=== PATIENT | male | born 1985 | race Hispanic/Latino ===

== ENCOUNTER 2017-09-29 09:37 | Emergency (ER) | payer SELFPAY ==
[~2017-09-29] VITALS: Ht 182.9 cm; Wt 110.0 kg
[2017-09-29] MEDS ORDERED: NAPROSYN500 MG PO (11:08)
[2017-09-29 11:10] VITALS: BP 131/77
== END 2017-09-29 11:18 | disposition home or self-care (01) | DRG 563 ==
LOC: ED 09:37
DX: S83.92XA Sprain of unspecified site of left knee, initial encounter (principal); X58.XXXA Exposure to other specified factors, initial encounter

== ENCOUNTER 2019-05-23 | Emergency (ER) | payer SELFPAY ==
[~2019-05-23] MED LIST: NAPROSYN500 MG PO
[2019-05-23 15:33] LABS: HEMATOCRIT 44.3 % (39.0-50.0); IMMATURE GRANULOCYTES 0.4 % (0.0-5.0); MEAN CELL VOLUME 95.7 fL CALC (80.0-100.0); MEAN CORPUSCULAR HGB 32.4 pG CALC (26.0-32.0); MEAN CORPUSCULAR HGB CONC 33.9 g/L CALC (32.0-36.0); NEUT# 4.56 thou/uL (1.82-7.42); RED BLOOD COUNT 4.63 mill/uL (4.70-6.10); RED CELL DISTRI WIDTH 12.3 % (11.5-15.5)
[2019-05-23 15:48] LABS: ALBUMIN 4.4 g/dL (3.2-5.0); ALKALINE PHOSPHATASE 81 u/l (38-126); ANION GAP 13 (6-22 (CALC)); BILIRUBIN, TOTAL 0.7 mg/dL (0.0-1.4); BUN 10 mg/dL (9-20); BUN/CREATININE RATIO 16 (12-20 (CALC)); CARBON DIOXIDE 27 mmol/l (22-30); CHLORIDE 102 mmol/l (95-108); CREATININE 0.6 mg/dL (0.7-1.3); GFR > 60 ML/MIN (>=60 (CALC)); GFR FOR AFR.AMER. > 60 ML/MIN (>=60 (CALC)); LIPASE 127 u/l (23-300); POTASSIUM 3.7 mmol/l (3.5-5.1); SGOT/AST 214 u/l (17-59); SODIUM 139 mmol/l (137-146); TOTAL PROTEIN 7.7 g/dL (6.3-8.2)
[2019-05-23 18:07] LABS: URINE BILIRUBIN - DIPSTICK NEGATIVE (NEGATIVE); URINE BLOOD DIPSTICK NEGATIVE (NEGATIVE); URINE COLOR YELLOW; URINE GLUCOSE - DIPSTICK NEGATIVE (NEGATIVE); URINE KETONE NEGATIVE (NEGATIVE); URINE LEUK ESTERASE NEGATIVE (NEGATIVE); URINE NITRITE - DIPSTICK NEGATIVE (Negative); URINE PROTEIN - DIPSTICK NEGATIVE (NEG-TRACE); URINE SPECIFIC GRAVITY >=1.030; URINE UROBILINOGEN - DIPSTICK 0.2 E.U./dL (0.2)
[2019-05-23] MEDS ORDERED: MOTRIN400 MG PO (18:11)
== END 2019-05-23 18:47 | disposition home or self-care (01) | DRG 392 ==
PROVIDERS: Family Medicine
DX: R10.12 Left upper quadrant pain (principal)
CPT/HCPCS: Q9967

== ENCOUNTER 2020-01-17 11:03 | Inpatient (IN) | payer OTHER ==
[~2020-01-17] VITALS: Ht 182.9 cm; Wt 97.2 kg
[~2020-01-17 11:03] MED LIST changes: +MOTRIN400 MG PO
[2020-01-17 11:51] LABS: HEMATOCRIT 46.5 % (39.0-50.0); IMMATURE GRANULOCYTES 1.1 % (0.0-5.0); MEAN CELL VOLUME 94.9 fL CALC (80.0-100.0); MEAN CORPUSCULAR HGB 32.7 pG CALC (26.0-32.0); MEAN CORPUSCULAR HGB CONC 34.4 g/dL CAL (32.0-36.0); NEUT# 3.25 thou/uL (1.82-7.42); RED BLOOD COUNT 4.9 mill/uL (4.70-6.10); RED CELL DISTRI WIDTH 12.2 % (11.5-15.5)
[2020-01-17 12:06] LABS: BILIRUBIN, TOTAL 0.8 mg/dL (0.0-1.4); BUN 3 mg/dL (9-20); BUN/CREATININE RATIO 6 (12-20 (CALC)); CHLORIDE 101 mmol/l (95-108); CREATININE 0.5 mg/dL (0.7-1.3); GFR > 60 ML/MIN (>=60 (CALC)); GFR FOR AFR.AMER. > 60 ML/MIN (>=60 (CALC)); POTASSIUM 4.3 mmol/l (3.5-5.1); SGOT/AST 189 u/l (17-59); SODIUM 143 mmol/l (137-146); TOTAL PROTEIN 8.9 g/dL (6.3-8.2)
[2020-01-17 12:08] LABS: INTERNATIONAL NORMALIZED RATIO 1.1 RATIO (0.7-1.3); PROTHROMBIN TIME 10.5 SECONDS (9.0-12.5)
[2020-01-17 12:15] LABS: ALBUMIN 5.3 g/dL (3.2-5.0); ALKALINE PHOSPHATASE 143 u/l (38-126); ANION GAP 29 (6-22 (CALC)); CARBON DIOXIDE 17 mmol/l (22-30)
[2020-01-17 12:43] LABS: ETHYL ALCOHOL 97 mg/dl (0-30)
[2020-01-17 17:01] LABS: ANION GAP 26 (6-22 (CALC)); BUN 3 mg/dL (9-20); BUN/CREATININE RATIO 5 (12-20 (CALC)); CARBON DIOXIDE 17 mmol/l (22-30); CHLORIDE 104 mmol/l (95-108); CREATININE 0.5 mg/dL (0.7-1.3); GFR > 60 ML/MIN (>=60 (CALC)); GFR FOR AFR.AMER. > 60 ML/MIN (>=60 (CALC)); POTASSIUM 3.8 mmol/l (3.5-5.1); SODIUM 143 mmol/l (137-146)
[2020-01-17 20:00] VITALS: BP 132/79
[2020-01-17 21:04] LABS: ANION GAP 26 (6-22 (CALC)); BUN 4 mg/dL (9-20); BUN/CREATININE RATIO 7 (12-20 (CALC)); CARBON DIOXIDE 17 mmol/l (22-30); CHLORIDE 101 mmol/l (95-108); CREATININE 0.6 mg/dL (0.7-1.3); GFR > 60 ML/MIN (>=60 (CALC)); GFR FOR AFR.AMER. > 60 ML/MIN (>=60 (CALC)); SODIUM 140 mmol/l (137-146)
[2020-01-17 22:00] VITALS: BP 119/75
[2020-01-18] VITALS (9 sets, daily range): BP systolic 11–123; BP diastolic 69–87
[2020-01-18 01:17] LABS: ANION GAP 18 (6-22 (CALC)); BUN 5 mg/dL (9-20); BUN/CREATININE RATIO 9 (12-20 (CALC)); CHLORIDE 103 mmol/l (95-108); CREATININE 0.5 mg/dL (0.7-1.3); GFR > 60 ML/MIN (>=60 (CALC)); GFR FOR AFR.AMER. > 60 ML/MIN (>=60 (CALC)); POTASSIUM 3.4 mmol/l (3.5-5.1); SODIUM 139 mmol/l (137-146)
[2020-01-18 01:19] LABS: CARBON DIOXIDE 21 mmol/l (22-30)
[2020-01-18 04:34] LABS: IMMATURE GRANULOCYTES 0.8 % (0.0-5.0); MEAN CELL VOLUME 95.7 fL CALC (80.0-100.0); MEAN CORPUSCULAR HGB 32.4 pG CALC (26.0-32.0); MEAN CORPUSCULAR HGB CONC 33.8 g/dL CAL (32.0-36.0); NEUT# 2.76 thou/uL (1.82-7.42); RED BLOOD COUNT 4.23 mill/uL (4.70-6.10); RED CELL DISTRI WIDTH 12.4 % (11.5-15.5)
[2020-01-18 04:38] LABS: HEMATOCRIT 40.5 % (39.0-50.0); HEMOGLOBIN 13.7 g/dl (14.0-18.0)
[2020-01-18 04:57] LABS: ANION GAP 19 (6-22 (CALC)); BUN 6 mg/dL (9-20); BUN/CREATININE RATIO 12 (12-20 (CALC)); CARBON DIOXIDE 19 mmol/l (22-30); CHLORIDE 103 mmol/l (95-108); CREATININE 0.5 mg/dL (0.7-1.3); GFR > 60 ML/MIN (>=60 (CALC)); GFR FOR AFR.AMER. > 60 ML/MIN (>=60 (CALC)); POTASSIUM 3.1 mmol/l (3.5-5.1); SODIUM 138 mmol/l (137-146)
[2020-01-18 04:59] LABS: ALKALINE PHOSPHATASE 84 u/l (38-126); ANION GAP 17 (6-22 (CALC)); BILIRUBIN, TOTAL 0.7 mg/dL (0.0-1.4); BUN 6 mg/dL (9-20); BUN/CREATININE RATIO 11 (12-20 (CALC)); CALCULATED LDLCHOLESTEROL 221 mg/dL (62-129 (CALC)); CARBON DIOXIDE 21 mmol/l (22-30); CHLORIDE 103 mmol/l (95-108); CHOLESTEROL HDL RATIO 7.4 (<4.4 (CALC)); CREATININE 0.5 mg/dL (0.7-1.3); GFR > 60 ML/MIN (>=60 (CALC)); GFR FOR AFR.AMER. > 60 ML/MIN (>=60 (CALC)); HDL CHOLESTEROL 40 mg/dL (>=40); MAGNESIUM 1.9 mg/dL (1.6-2.3); POTASSIUM 3.1 mmol/l (3.5-5.1); SGOT/AST 114 u/l (17-59); SODIUM 138 mmol/l (137-146); TOTAL CHOLESTEROL 296 mg/dl (0-199); TOTAL TRIGLYCERIDES 175 mg/dl (30-149); VLDL CHOLESTROL 35 mg/dl (5-56 (CALC))
[2020-01-18 05:00] LABS: ALBUMIN 4.2 g/dL (3.2-5.0)
[2020-01-18 09:31] LABS: ANION GAP 21 (6-22 (CALC)); BUN 6 mg/dL (9-20); BUN/CREATININE RATIO 13 (12-20 (CALC)); CARBON DIOXIDE 18 mmol/l (22-30); CHLORIDE 102 mmol/l (95-108); CREATININE 0.5 mg/dL (0.7-1.3); GFR > 60 ML/MIN (>=60 (CALC)); GFR FOR AFR.AMER. > 60 ML/MIN (>=60 (CALC)); POTASSIUM 3.4 mmol/l (3.5-5.1); SODIUM 138 mmol/l (137-146)
[2020-01-18 13:37] LABS: ALBUMIN 4.3 g/dL (3.2-5.0); ALKALINE PHOSPHATASE 88 u/l (38-126); ANION GAP 21 (6-22 (CALC)); BILIRUBIN, TOTAL 0.8 mg/dL (0.0-1.4); BUN 6 mg/dL (9-20); BUN/CREATININE RATIO 10 (12-20 (CALC)); CARBON DIOXIDE 19 mmol/l (22-30); CHLORIDE 100 mmol/l (95-108); CREATININE 0.6 mg/dL (0.7-1.3); GFR > 60 ML/MIN (>=60 (CALC)); GFR FOR AFR.AMER. > 60 ML/MIN (>=60 (CALC)); POTASSIUM 3.7 mmol/l (3.5-5.1); SGOT/AST 174 u/l (17-59); SODIUM 136 mmol/l (137-146); TOTAL PROTEIN 7.3 g/dL (6.3-8.2)
[2020-01-19 04:00] VITALS: BP 124/76
[2020-01-19 05:45] LABS: HEMATOCRIT 41.4 % (39.0-50.0); HEMOGLOBIN 13.9 g/dl (14.0-18.0); MEAN CELL VOLUME 97.4 fL CALC (80.0-100.0); MEAN CORPUSCULAR HGB 32.7 pG CALC (26.0-32.0); MEAN CORPUSCULAR HGB CONC 33.6 g/dL CAL (32.0-36.0); NEUT# 2.47 thou/uL (1.82-7.42); RED BLOOD COUNT 4.25 mill/uL (4.70-6.10); RED CELL DISTRI WIDTH 12.4 % (11.5-15.5)
[2020-01-19 06:07] LABS: ALKALINE PHOSPHATASE 90 u/l (38-126); ANION GAP 22 (6-22 (CALC)); BUN 6 mg/dL (9-20); BUN/CREATININE RATIO 9 (12-20 (CALC)); CARBON DIOXIDE 17 mmol/l (22-30); CHLORIDE 100 mmol/l (95-108); CREATININE 0.6 mg/dL (0.7-1.3); GFR > 60 ML/MIN (>=60 (CALC)); GFR FOR AFR.AMER. > 60 ML/MIN (>=60 (CALC)); SGOT/AST 189 u/l (17-59); SODIUM 135 mmol/l (137-146); TOTAL PROTEIN 6.8 g/dL (6.3-8.2)
[2020-01-19 07:24] VITALS: BP 127/84
[2020-01-19] MEDS ORDERED: METFORMIN500 M2 PO (11:23)
[2020-01-19] MEDS ORDERED: NOVOLIN 70/30 SC (11:27)
== END 2020-01-19 11:34 | disposition home or self-care (01) | DRG 639 ==
LOC: ED 11:03 → ED-I 13:25 → ED 14:15 → ICU 14:16 → MS2 01-18 16:20
PROVIDERS: Emergency Medicine; Nurse Practitioner; ADMIT Internal Medicine; ATTEND Internal Medicine
DX: E11.10 Type 2 diabetes mellitus with ketoacidosis without coma (principal); K06.8 Other specified disorders of gingiva and edentulous alveolar ridge; F10.10 Alcohol abuse, uncomplicated; Y90.4 Blood alcohol level of 80-99 mg/100 ml; Z20.828 Contact with and (suspected) exposure to other viral communicable diseases

== ENCOUNTER 2021-09-09 11:27 | Emergency (ER) | payer MEDICAID ==
[2021-09-09] VITALS (7 sets, daily range): BP systolic 126–147; BP diastolic 82–100
[~2021-09-09] VITALS: Ht 167.6 cm; Wt 79.8 kg
[~2021-09-09 11:27] MED LIST changes: +METFORMIN500 M2 PO; +NOVOLIN 70/30 SC
[2021-09-09 12:25] LABS: IMMATURE GRANULOCYTES 0.4 % (0.0-5.0); MEAN CELL VOLUME 96.1 fL CALC (80.0-100.0); MEAN CORPUSCULAR HGB CONC 34.4 g/dL CAL (32.0-36.0); NEUT# 5.13 thou/uL (1.82-7.42); RED BLOOD COUNT 5.09 mill/uL (4.70-6.10); RED CELL DISTRI WIDTH 11.5 % (11.5-15.5)
[2021-09-09 12:31] LABS: HEMATOCRIT 48.9 % (39.0-50.0); HEMOGLOBIN 16.8 g/dl (14.0-18.0)
[2021-09-09 12:46] LABS: URINE BLOOD DIPSTICK NEGATIVE (NEGATIVE); URINE COLOR YELLOW; URINE GLUCOSE - DIPSTICK >=1000 mg/dL (NEGATIVE); URINE KETONE >=80 mg/dL (NEGATIVE); URINE LEUK ESTERASE NEGATIVE (NEGATIVE); URINE PH 5.5 (4.5-8.0); URINE PROTEIN - DIPSTICK TRACE mg/dL (NEG-TRACE); URINE SPECIFIC GRAVITY 1.015; URINE UROBILINOGEN - DIPSTICK 0.2 E.U./dL (0.2)
[2021-09-09 12:47] LABS: ALKALINE PHOSPHATASE 111 u/l (38-126); ANION GAP 26 (6-22 (CALC)); BUN 12 mg/dL (9-20); BUN/CREATININE RATIO 24 (12-20 (CALC)); CARBON DIOXIDE 20 mmol/l (22-30); CHLORIDE 93 mmol/l (95-108); CPK 137 u/l (52-200); CREATININE 0.5 mg/dL (0.7-1.3); GFR FOR AFR.AMER. > 60 ML/MIN (>=60 (CALC)); GFR OTHER RACES > 60 ML/MIN (>=60 (CALC)); MAGNESIUM 1.9 mg/dL (1.6-2.3); POTASSIUM 4.1 mmol/l (3.5-5.1); SGOT/AST 116 u/l (17-59); SODIUM 135 mmol/l (137-146)
[2021-09-09 12:51] LABS: URINE BILIRUBIN - DIPSTICK SMALL (NEGATIVE); URINE NITRITE - DIPSTICK NEGATIVE (Negative)
[2021-09-09] MEDS ORDERED: LOSARTAN POTASS25 MG PO (13:11)
[2021-09-09] MEDS ORDERED: JARDIANCE25 MG PO (13:11)
[2021-09-09] MEDS ORDERED: ROSUVASTATIN CA20 MG PO (13:12)
[2021-09-09] MEDS ORDERED: METFORMIN500 M2 PO (13:12)
[2021-09-09] MEDS ORDERED: TRAZODONE50 MG PO (13:12)
[2021-09-09 13:22] LABS: ALBUMIN 5.2 g/dL (3.2-5.0); BILIRUBIN, TOTAL 1.7 mg/dL (0.0-1.4); TOTAL PROTEIN 9.4 g/dL (6.3-8.2)
== END 2021-09-09 15:36 | disposition left against medical advice (07) ==
LOC: ED 11:27
PROVIDERS: Family Medicine
DX: E86.0 Dehydration (principal); R74.01 Elevation of levels of liver transaminase levels; E11.9 Type 2 diabetes mellitus without complications; X32.XXXA Exposure to sunlight, initial encounter; Z91.19 Patient's noncompliance with other medical treatment and regimen; Z79.84 Long term (current) use of oral hypoglycemic drugs; Z20.822 Contact with and (suspected) exposure to COVID-19
CPT/HCPCS: Q9967

== ENCOUNTER 2021-11-01 22:43 | Emergency (ER) | payer MEDICAID ==
[~2021-11-01] VITALS: Ht 167.6 cm; Wt 85.0 kg
[~2021-11-01 22:43] MED LIST changes: +JARDIANCE25 MG PO; +LOSARTAN POTASS25 MG PO; +ROSUVASTATIN CA20 MG PO; +TRAZODONE50 MG PO
[2021-11-01 23:27] VITALS: BP 151/94
[2021-11-01 23:30] VITALS: BP 137/95
[2021-11-02] MEDS ORDERED: PROMETHAZINE HY25 M1 PO (01:38)
[2021-11-02 02:09] VITALS: BP 137/95
[2021-11-02 02:42] LABS: URINE BILIRUBIN - DIPSTICK NEGATIVE (NEGATIVE); URINE COLOR YELLOW; URINE GLUCOSE - DIPSTICK >=1000 mg/dL (NEGATIVE)
[2021-11-02 02:43] LABS: URINE KETONE >=80 mg/dL (NEGATIVE); URINE NITRITE - DIPSTICK NEGATIVE (Negative); URINE PROTEIN - DIPSTICK Trace mg/dL (NEG-TRACE); URINE UROBILINOGEN - DIPSTICK 0.2 E.U./dL (0.2)
[2021-11-02 02:44] LABS: URINE BLOOD DIPSTICK NEGATIVE (NEGATIVE); URINE LEUK ESTERASE NEGATIVE (NEGATIVE)
[2021-11-02 02:46] LABS: HEMOGLOBIN 15.8 g/dl (14.0-18.0); MEAN CELL VOLUME 94.4 fL CALC (80.0-100.0); RED BLOOD COUNT 4.66 mill/uL (4.70-6.10)
[2021-11-02 02:47] LABS: MEAN CORPUSCULAR HGB 33.9 pG CALC (26.0-32.0); MEAN CORPUSCULAR HGB CONC 35.9 g/dL CAL (32.0-36.0); RED CELL DISTRI WIDTH 11.8 % (11.5-15.5)
[2021-11-02 02:48] LABS: NEUT# 7.03 thou/uL (1.82-7.42)
[2021-11-02 02:52] LABS: IMMATURE GRANULOCYTES 0.2 % (0.0-5.0)
[2021-11-02 02:56] LABS: ANION GAP 27 (6-22 (CALC)); BILIRUBIN, TOTAL 2.3 mg/dL (0.0-1.4); BUN 8 mg/dL (9-20); BUN/CREATININE RATIO 16 (12-20 (CALC)); CARBON DIOXIDE 22 mmol/l (22-30); CHLORIDE 88 mmol/l (95-108); CREATININE 0.5 mg/dL (0.7-1.3); GFR FOR AFR.AMER. > 60 ML/MIN (>=60 (CALC)); GFR OTHER RACES > 60 ML/MIN (>=60 (CALC)); POTASSIUM 3.9 mmol/l (3.5-5.1); SODIUM 133 mmol/l (137-146); TOTAL PROTEIN 8.5 g/dL (6.3-8.2)
[2021-11-02 02:57] LABS: ALKALINE PHOSPHATASE 93 u/l (38-126); LIPASE 135 u/l (23-300); SGOT/AST 75 u/l (17-59)
== END 2021-11-02 01:50 | disposition home or self-care (01) ==
LOC: ED 22:43
PROVIDERS: Family Medicine
DX: K52.9 Noninfective gastroenteritis and colitis, unspecified (principal); F41.9 Anxiety disorder, unspecified; E11.9 Type 2 diabetes mellitus without complications; Z79.84 Long term (current) use of oral hypoglycemic drugs

== ENCOUNTER 2021-11-27 01:00 | Emergency (ER) | payer MEDICAID ==
[~2021-11-27] VITALS: Ht 167.6 cm; Wt 72.2 kg
[2021-11-27] VITALS (14 sets, daily range): BP systolic 121–142; BP diastolic 67–103
[~2021-11-27 01:00] MED LIST changes: +PROMETHAZINE HY25 M1 PO
[2021-11-27 02:16] LABS: HEMOGLOBIN 16.8 g/dl (14.0-18.0); IMMATURE GRANULOCYTES 0.2 % (0.0-5.0); MEAN CELL VOLUME 89.5 fL CALC (80.0-100.0); MEAN CORPUSCULAR HGB 32.7 pG CALC (26.0-32.0); MEAN CORPUSCULAR HGB CONC 36.5 g/dL CAL (32.0-36.0); NEUT# 8.86 thou/uL (1.82-7.42); RED BLOOD COUNT 5.14 mill/uL (4.70-6.10); RED CELL DISTRI WIDTH 11.3 % (11.5-15.5)
[2021-11-27 02:20] LABS: ALBUMIN 4.7 g/dL (3.2-5.0); ALKALINE PHOSPHATASE 61 u/l (38-126); AMYLASE 65 u/l (30-110); BUN 4 mg/dL (9-20); BUN/CREATININE RATIO 8 (12-20 (CALC)); CHLORIDE 93 mmol/l (95-108); CREATININE 0.6 mg/dL (0.7-1.3); GFR FOR AFR.AMER. > 60 ML/MIN (>=60 (CALC)); GFR OTHER RACES > 60 ML/MIN (>=60 (CALC)); LIPASE 39 u/l (23-300); POTASSIUM 3.8 mmol/l (3.5-5.1); SGOT/AST 40 u/l (17-59); SODIUM 135 mmol/l (137-146)
[2021-11-27 02:22] LABS: ANION GAP 18 (6-22 (CALC)); BILIRUBIN, TOTAL 1.1 mg/dL (0.0-1.4); CARBON DIOXIDE 28 mmol/l (22-30)
[2021-11-27 04:27] LABS: URINE BILIRUBIN - DIPSTICK NEGATIVE (NEGATIVE); URINE BLOOD DIPSTICK NEGATIVE (NEGATIVE); URINE COLOR YELLOW; URINE GLUCOSE - DIPSTICK 100 mg/dL (NEGATIVE); URINE KETONE NEGATIVE (NEGATIVE); URINE LEUK ESTERASE NEGATIVE (NEGATIVE); URINE PH 7.5 (4.5-8.0); URINE PROTEIN - DIPSTICK TRACE mg/dL (NEG-TRACE); URINE SPECIFIC GRAVITY 1.015; URINE UROBILINOGEN - DIPSTICK 0.2 E.U./dL (0.2)
[2021-11-27 04:29] LABS: URINE NITRITE - DIPSTICK NEGATIVE (Negative)
== END 2021-11-27 09:56 | disposition home or self-care (01) ==
LOC: ED 01:00
PROVIDERS: Emergency Medicine
DX: K52.9 Noninfective gastroenteritis and colitis, unspecified (principal); E87.2 Acidosis
CPT/HCPCS: Q9967

== ENCOUNTER 2021-12-07 02:22 | Emergency (ER) | payer MEDICAID ==
[~2021-12-07] VITALS: Ht 167.6 cm; Wt 73.0 kg
[2021-12-07] VITALS (21 sets, daily range): BP systolic 111–152; BP diastolic 84–125
[2021-12-07 03:14] LABS: HEMOGLOBIN 16.3 g/dl (14.0-18.0); IMMATURE GRANULOCYTES 0.2 % (0.0-5.0); MEAN CORPUSCULAR HGB 32.6 pG CALC (26.0-32.0); MEAN CORPUSCULAR HGB CONC 36.2 g/dL CAL (32.0-36.0); NEUT# 5.8 thou/uL (1.82-7.42); RED CELL DISTRI WIDTH 11.6 % (11.5-15.5)
[2021-12-07 03:27] LABS: ALKALINE PHOSPHATASE 59 u/l (38-126); ANION GAP 21 (6-22 (CALC)); BILIRUBIN, TOTAL 0.9 mg/dL (0.0-1.4); BUN 2 mg/dL (9-20); BUN/CREATININE RATIO 4 (12-20 (CALC)); CARBON DIOXIDE 24 mmol/l (22-30); CHLORIDE 94 mmol/l (95-108); CREATININE 0.5 mg/dL (0.7-1.3); GFR FOR AFR.AMER. > 60 ML/MIN (>=60 (CALC)); GFR OTHER RACES > 60 ML/MIN (>=60 (CALC)); MAGNESIUM 1.7 mg/dL (1.6-2.3); POTASSIUM 3.6 mmol/l (3.5-5.1); SGOT/AST 46 u/l (17-59); SODIUM 135 mmol/l (137-146); TOTAL PROTEIN 8.3 g/dL (6.3-8.2)
[2021-12-07 04:55] LABS: URINE BILIRUBIN - DIPSTICK NEGATIVE (NEGATIVE); URINE BLOOD DIPSTICK NEGATIVE (NEGATIVE); URINE COLOR YELLOW; URINE GLUCOSE - DIPSTICK NEGATIVE (NEGATIVE); URINE KETONE NEGATIVE (NEGATIVE); URINE LEUK ESTERASE NEGATIVE (NEGATIVE); URINE PROTEIN - DIPSTICK NEGATIVE (NEG-TRACE); URINE UROBILINOGEN - DIPSTICK 0.2 E.U./dL (0.2)
[2021-12-07 04:56] LABS: URINE NITRITE - DIPSTICK NEGATIVE (Negative)
[2021-12-07] MEDS ORDERED: GABAPENTIN100 MG PO (05:16)
[2021-12-07] MEDS ORDERED: PROCHLORPER25 MG RE (05:16)
== END 2021-12-07 07:37 | disposition home or self-care (01) ==
LOC: ED 02:22
PROVIDERS: Family Medicine
DX: K52.9 Noninfective gastroenteritis and colitis, unspecified (principal); E11.42 Type 2 diabetes mellitus with diabetic polyneuropathy; F41.9 Anxiety disorder, unspecified; Z79.4 Long term (current) use of insulin; Z20.822 Contact with and (suspected) exposure to COVID-19

== ENCOUNTER 2024-03-05 03:22 | Emergency (ER) | payer SELFPAY ==
[~2024-03-05] VITALS: Ht 167.6 cm; Wt 85.0 kg
[~2024-03-05 03:22] MED LIST changes: +BP MED; +GABAPENTIN100 MG PO; +PROCHLORPER25 MG RE
[2024-03-05 03:43] VITALS: BP 128/80
[2024-03-05] MEDS ORDERED: SODIUM CHLORIDE 0.9% 1,000 ML IV STA (03:43)
[2024-03-05] MEDS ORDERED: INSULIN REGULAR (HUMAN) 100 UNIT/ML INJ SC STA (03:44)
[2024-03-05] MEDS ORDERED: SODIUM CHLORIDE 0.9% 1,000 ML IV ONE (03:45)
[2024-03-05] MEDS ORDERED: PROMETHAZINE HCL 25 MG/ML AMP IV ONE (03:50)
[2024-03-05 04:00] VITALS: BP 130/85
[2024-03-05 04:10] LABS: BASO% 0.3 % (0-3); HEMATOCRIT 49.6 % (39.0-50.0); HEMOGLOBIN 16.9 g/dl (14.0-18.0); LYMPH% 15.8 % (15-41); MEAN CELL VOLUME 97.8 fL CALC (80.0-100.0); MEAN CORPUSCULAR HGB 33.3 pG CALC (26.0-32.0); MEAN CORPUSCULAR HGB CONC 34.1 g/dL CAL (32.0-36.0); MONO% 9.1 % (2-13); NEUT# 5.33 thou/uL (1.82-7.42); NEUT% 73.8 % (42-76); RED BLOOD COUNT 5.07 mill/uL (4.70-6.10); RED CELL DISTRI WIDTH 11.5 % (11.5-15.5)
[2024-03-05 04:25] LABS: BILIRUBIN, TOTAL 2.7 mg/dL (0.2-1.3); CREATININE 0.6 mg/dL (0.7-1.3); MAGNESIUM 2.2 mg/dL (1.6-2.3); POTASSIUM 3.7 mmol/l (3.5-5.1)
[2024-03-05 04:30] LABS: ALBUMIN 5.1 g/dL (3.2-5.0); TOTAL PROTEIN 8.6 g/dL (6.3-8.2)
[2024-03-05 04:31] VITALS: BP 136/100
[2024-03-05] MEDS ORDERED: PROCHLORPERAZINE EDISYLATE 10 MG/2 ML SDV IV ONE (05:00)
[2024-03-05] MEDS ORDERED: DiphenhydrAMINE HCL 50 MG/ML SDV IV ONE (05:00)
[2024-03-05 05:03] VITALS: BP 145/74
[2024-03-05 06:05] LABS: URINE BLOOD DIPSTICK Negative (NEGATIVE); URINE GLUCOSE - DIPSTICK 500 mg/dL (NEGATIVE); URINE KETONE >=160 mg/dL (NEGATIVE); URINE LEUK ESTERASE Negative (NEGATIVE); URINE NITRITE - DIPSTICK Negative (Negative); URINE PROTEIN - DIPSTICK 100 mg/dL (NEG-TRACE); URINE SPECIFIC GRAVITY 1.025
[2024-03-05 06:07] LABS: URINE COLOR Dark yellow
[2024-03-05 06:18] LABS: URINE BACTERIA FEW hpf; URINE EPITHELIAL CELLS FEW EPI/hpf (0-FEW); URINE MUCUS FEW hpf (NONE-FEW); URINE RBC 0-2 RBC/hpf (0-5)
[2024-03-05 06:25] VITALS: BP 145/74
== END 2024-03-05 06:35 | disposition home or self-care (01) | DRG 392 ==
LOC: ED 03:22
PROVIDERS: Family Medicine
DX: K52.9 Noninfective gastroenteritis and colitis, unspecified (principal); I10 Essential (primary) hypertension; E11.43 Type 2 diabetes mellitus with diabetic autonomic (poly)neuropathy; K31.84 Gastroparesis; Z79.4 Long term (current) use of insulin; Z20.822 Contact with and (suspected) exposure to COVID-19
CPT/HCPCS: J0780; J1200; J2550; Q9967

== ENCOUNTER 2024-06-03 20:21 | Emergency (ER) | payer SELFPAY ==
[~2024-06-03] VITALS: Ht 167.6 cm; Wt 98.0 kg
[2024-06-03] VITALS (11 sets, daily range): BP systolic 115–129; BP diastolic 75–90
[2024-06-03] MEDS ORDERED: SODIUM CHLORIDE 0.9% 1,000 ML IV ONE (20:35)
[2024-06-03] MEDS ORDERED: ONDANSETRON HCl 4 MG/2 ML SDV IV ONE ×2 (20:35→21:35)
[2024-06-03 20:48] LABS: BASO% 0.2 % (0-3); HEMATOCRIT 46.9 % (39.0-50.0); HEMOGLOBIN 17.2 g/dl (14.0-18.0); IMMATURE GRANULOCYTES 0.2 % (0.0-5.0); LYMPH% 11.6 % (15-41); MEAN CORPUSCULAR HGB 33.4 pG CALC (26.0-32.0); MEAN CORPUSCULAR HGB CONC 36.7 g/dL CAL (32.0-36.0); MONO% 5.5 % (2-13); NEUT# 7.77 thou/uL (1.82-7.42); NEUT% 82.5 % (42-76); RED BLOOD COUNT 5.15 mill/uL (4.70-6.10); RED CELL DISTRI WIDTH 11.5 % (11.5-15.5)
[2024-06-03 20:49] LABS: MEAN CELL VOLUME 91.1 fL CALC (80.0-100.0)
[2024-06-03 21:00] LABS: ALBUMIN 4.9 g/dL (3.2-5.0); BILIRUBIN, TOTAL 2.5 mg/dL (0.2-1.3); CREATININE 0.6 mg/dL (0.7-1.3); POTASSIUM 4.2 mmol/l (3.5-5.1); TOTAL PROTEIN 8.4 g/dL (6.3-8.2)
[2024-06-03] MEDS ORDERED: PROMETHAZINE HCL 25 MG/ML AMP IM ONE (22:20)
[2024-06-03 22:31] LABS: URINE BLOOD DIPSTICK Negative (NEGATIVE); URINE GLUCOSE - DIPSTICK 100 mg/dL (NEGATIVE); URINE KETONE >=160 mg/dL (NEGATIVE); URINE LEUK ESTERASE Negative (NEGATIVE); URINE PH 7.5 (4.5-8.0); URINE PROTEIN - DIPSTICK >=300 mg/dL (NEG-TRACE)
[2024-06-03 22:32] LABS: URINE COLOR Amber; URINE NITRITE - DIPSTICK Positive (Negative)
[2024-06-03 22:37] LABS: URINE MUCUS MANY hpf (NONE-FEW); URINE RBC 0-2 RBC/hpf (0-5); URINE WBC 0-2 WBC/hpf (0-5)
[2024-06-04] MEDS ORDERED: OMNICEF300 MG PO (01:21)
[2024-06-04] MEDS ORDERED: ZOFRAN4 MG/TAB PO (01:21)
[2024-06-04 01:29] VITALS: BP 123/90
== END 2024-06-04 01:59 | disposition home or self-care (01) | DRG 690 ==
LOC: ED 20:21
PROVIDERS: Emergency Medicine
DX: N39.0 Urinary tract infection, site not specified (principal); E86.0 Dehydration; I10 Essential (primary) hypertension; E11.43 Type 2 diabetes mellitus with diabetic autonomic (poly)neuropathy; K31.84 Gastroparesis; F41.9 Anxiety disorder, unspecified; Z79.4 Long term (current) use of insulin; Z20.822 Contact with and (suspected) exposure to COVID-19
CPT/HCPCS: J0696; J2405; J2550